=== PATIENT | male | born 1960 | race African-American/Black ===

== ENCOUNTER 2016-11-02 22:19 | Emergency (ER) | payer MEDICARE, OTHER ==
[~2016-11-02] VITALS: Ht 180.3 cm; Wt 108.9 kg
[2016-11-02 22:30] VITALS: BP 240/161
== END 2016-11-02 23:06 | disposition left against medical advice (07) ==
LOC: EDBD 22:19 → ER 22:26
DX: I10 Essential (primary) hypertension (principal); R40.1 Stupor; Z53.21 Procedure and treatment not carried out due to patient leaving prior to being seen by health care provider

== ENCOUNTER 2021-04-17 13:53 | Inpatient (IN) | payer OTHER ==
[~2021-04-17] VITALS: Ht 180.3 cm; Wt 122.3 kg
[2021-04-17] MEDS ORDERED: SODIUM CHLORIDE 0.9% 500 ML IV ONE (14:15)
[2021-04-17] MEDS ORDERED: KETOROLAC TROMETH 30 MG/ML 1ML VIAL IV ONE (14:15)
[2021-04-17 14:43] LABS: Basophils # (auto) 0.1 10 ^3/uL (0-0.2); Basophils % (auto) 0.7 % (0.0-2.0); Eosinophils # (auto) 0 10 ^3/uL (0-0.8); Eosinophils % (auto) 0.2 % (0.0-7.0); Hematocrit 38.8 % (41.0-53.0); Lymphocytes # (auto) 1.3 10 ^3/uL (0.4-5.4); Lymphocytes % (auto) 10.4 % (10.0-50.0); Mean Corpuscular Hemoglobin 31.2 pg (28.0-32.0); Mean Corpuscular Hgb Conc. 33.6 g/dL (32.0-36.0); Mean Corpuscular Volume 92.8 fL (80.0-100.0); Monocytes # (auto) 1.7 10 ^3/uL (0-1.3); Monocytes % (auto) 13.2 % (0.0-12.0); Neutrophils # (auto) 9.5 10 ^3/uL (1.6-8.6); Neutrophils % (auto) 75.5 % (37.0-80.0); Nucleated Red Blood Cells % 0.2 %; Red Blood Cells 4.18 10^6/uL (4.5-5.90); Red Cell Distribution Width 13.4 % (11.8-14.3); White Blood Cell 12.6 10^3/uL (4.4-10.8)
[2021-04-17 15:05] LABS: Albumin 3.2 g/dL (3.4-5.0); BUN/Creatinine Ratio 13.8; Calcium 8.5 mg/dL (8.5-10.1); Potassium 3.3 mmol/L (3.5-5.1)
[2021-04-17] MEDS ORDERED: CLINDAMYCIN 600MG IV 50 ML IV ONE (17:30)
[2021-04-17] MEDS ORDERED: POTASSIUM EFFERVESENT TAB 25 MEQ PO ONE (17:30)
[2021-04-17] MEDS ORDERED: levoFLOXacin 500MG 100 ML IV ONE (17:30)
[2021-04-17] MEDS ORDERED: ONDANSETRON HCL 4 MG/2 ML VIAL IV PRN (20:15)
[2021-04-17] MEDS ORDERED: ACETAMINOPHEN 500 MG TAB PO PRN (20:15)
[2021-04-17] MEDS ORDERED: LABETALOL HCL 5 MG/ML ML 20ML VIAL IV PRN (20:15)
[2021-04-17] MEDS ORDERED: NITROGLYCERIN 0.4 MG SL TAB SL PRN (20:15)
[2021-04-17] MEDS ORDERED: DEXTROSE (50%) 50ML SYRG IV PRN (20:15)
[2021-04-17] MEDS ORDERED: LACTULOSE 20Gm/30ML SOLN PO PRN (20:15)
[2021-04-17] MEDS ORDERED: MORPHINE SULF INJ 2 MG/ML SYRINGE 1ML IV PRN (20:15)
[2021-04-17 20:28] LABS: Urine Bacteria NONE SEEN /hpf (None Seen); Urine Blood Negative /uL (Negative); Urine Specific Gravity 1.017 (1.001-1.035); Urine WBC 1 /hpf (0 - 3)
[2021-04-17] MEDS: SODIUM CHLORIDE 0.9% 1,000 ML IV SCH (20:33)
[2021-04-17 20:44] LABS: Amphetamine Screen, Urine NEGATIVE (NEGATIVE); Barbiturate Scree,Urine NEGATIVE (NEGATIVE); Benzodiazephine Screen, Urine NEGATIVE (NEGATIVE); Cannabinoid Screen, Urine NEGATIVE (NEGATIVE); Cocaine Screen, Urine NEGATIVE (NEGATIVE); Opiate Scree,Urine NEGATIVE (NEGATIVE); Phencyclidine Screen, Urine POSITIVE (NEGATIVE)
[2021-04-17] MEDS: traMADol HCL 50 MG TAB PO PRN (21:09)
[2021-04-17 21:18] LABS: CRP High Sensitivity 10.8 mg/dL (< 0.3)
[2021-04-17 22:00] VITALS: BP 140/76
[2021-04-17] MEDS: FAMOTIDINE 20 MG TAB PO SCH (22:12)
[2021-04-17] MEDS: ACCU-CHEK COMFORT CURVE STRIP VI SCH (22:13)
[2021-04-17] MEDS: InsuLIN REG 1unit/0.01ml Soln (100units/ml) SC SCH (22:31)
[2021-04-18] MEDS: CLINDAMYCIN 600MG IV 50 ML IV SCH ×2 (02:15→09:22)
[2021-04-18 05:00] VITALS: BP 115/72
[2021-04-18] MEDS: InsuLIN REG 1unit/0.01ml Soln (100units/ml) SC SCH ×4 (06:11→21:12)
[2021-04-18] MEDS: ACCU-CHEK COMFORT CURVE STRIP VI SCH ×4 (06:11→21:08)
[2021-04-18 06:16] LABS: Basophils # (auto) 0 10 ^3/uL (0-0.2); Basophils % (auto) 0.4 % (0.0-2.0); Eosinophils # (auto) 0.1 10 ^3/uL (0-0.8); Hematocrit 34.6 % (41.0-53.0); Hemoglobin 11.8 g/dL (13.5-17.5); Lymphocytes # (auto) 2.1 10 ^3/uL (0.4-5.4); Lymphocytes % (auto) 18.1 % (10.0-50.0); Mean Corpuscular Hemoglobin 31.8 pg (28.0-32.0); Mean Corpuscular Hgb Conc. 34.1 g/dL (32.0-36.0); Mean Corpuscular Volume 93.1 fL (80.0-100.0); Monocytes # (auto) 1.7 10 ^3/uL (0-1.3); Neutrophils # (auto) 7.6 10 ^3/uL (1.6-8.6); Neutrophils % (auto) 65.5 % (37.0-80.0); Red Blood Cells 3.72 10^6/uL (4.5-5.90); Red Cell Distribution Width 13.3 % (11.8-14.3); White Blood Cell 11.7 10^3/uL (4.4-10.8)
[2021-04-18 06:31] LABS: Potassium 3.2 mmol/L (3.5-5.1)
[2021-04-18] MEDS: SODIUM CHLORIDE 0.9% 1,000 ML IV SCH ×2 (06:31→16:15)
[2021-04-18 06:43] LABS: Albumin 2.7 g/dL (3.4-5.0); BUN/Creatinine Ratio 18.1; Bilirubin, Total 0.6 mg/dL (0.2-1.0); Calcium 8.2 mg/dL (8.5-10.1); Total Protein 6.9 g/dL (6.4-8.2)
[2021-04-18] MEDS: traMADol HCL 50 MG TAB PO PRN (08:44)
[2021-04-18 09:00] VITALS: BP 111/80
[2021-04-18] MEDS ORDERED: LORazepam 2MG/ML-1ML VIAL IV PRN (09:00)
[2021-04-18] MEDS: FAMOTIDINE 20 MG TAB PO SCH ×2 (09:23→21:08)
[2021-04-18] MEDS: ASPirin 81 mg TAB PO SCH (09:23)
[2021-04-18] MEDS: ENOXAPARIN SOD 40 MG/0.4 ML SYRINGE SC SCH (09:23)
[2021-04-18] MEDS ORDERED: POTASSIUM CHL 20 Meq TABLET PO ONE (10:30)
[2021-04-18] MEDS: PIPERACILLIN-TAZOB 3.375GM 100 ML IV SCH ×3 (10:40→21:43)
[2021-04-18] MEDS ORDERED: levoFLOXacin 500MG 100 ML IV SCH (11:00)
[2021-04-18 11:01] LABS: Folate (Folic Acid) 5.77 ng/mL (5.38-24)
[2021-04-18] MEDS ORDERED: FOLIC ACID 1 MG, MULTIPLE VITAMIN 10 ML, MAGNESIUM SULF SDV 50% 8 MEQ, THIAMINE INJ 100... INJ SCH ×5 (12:00)
[2021-04-18 13:00] VITALS: BP 118/74
[2021-04-18 17:00] VITALS: BP 132/81
[2021-04-18 22:00] VITALS: BP 133/90
[2021-04-19] MEDS: PIPERACILLIN-TAZOB 3.375GM 100 ML IV SCH (04:06)
[2021-04-19] MEDS: SODIUM CHLORIDE 0.9% 1,000 ML IV SCH (04:06)
[2021-04-19 05:00] VITALS: BP 133/81
[2021-04-19 06:27] LABS: Basophils # (auto) 0 10 ^3/uL (0-0.2); Basophils % (auto) 0.5 % (0.0-2.0); Eosinophils # (auto) 0.1 10 ^3/uL (0-0.8); Eosinophils % (auto) 1.5 % (0.0-7.0); Hematocrit 33.8 % (41.0-53.0); Hemoglobin 11.6 g/dL (13.5-17.5); Lymphocytes # (auto) 2.1 10 ^3/uL (0.4-5.4); Mean Corpuscular Hgb Conc. 34.2 g/dL (32.0-36.0); Mean Corpuscular Volume 93.5 fL (80.0-100.0); Monocytes # (auto) 1.2 10 ^3/uL (0-1.3); Monocytes % (auto) 11.9 % (0.0-12.0); Neutrophils # (auto) 6.3 10 ^3/uL (1.6-8.6); Neutrophils % (auto) 64.1 % (37.0-80.0); Red Blood Cells 3.62 10^6/uL (4.5-5.90); Red Cell Distribution Width 13.2 % (11.8-14.3); White Blood Cell 9.8 10^3/uL (4.4-10.8)
[2021-04-19] MEDS: InsuLIN REG 1unit/0.01ml Soln (100units/ml) SC SCH (06:36)
[2021-04-19] MEDS: ACCU-CHEK COMFORT CURVE STRIP VI SCH (06:36)
[2021-04-19 06:53] LABS: BUN/Creatinine Ratio 16.5; Calcium 8.3 mg/dL (8.5-10.1); Potassium 3.9 mmol/L (3.5-5.1)
[2021-04-19] MEDS: traMADol HCL 50 MG TAB PO PRN (09:18)
[2021-04-19] MEDS: ENOXAPARIN SOD 40 MG/0.4 ML SYRINGE SC SCH (09:33)
[2021-04-19] MEDS: FAMOTIDINE 20 MG TAB PO SCH (09:33)
[2021-04-19] MEDS: ASPirin 81 mg TAB PO SCH (09:33)
== END 2021-04-19 11:00 | DRG 602 ==
LOC: ER 13:53 → EDBD 13:53 → TELE 20:06 → TELE-WESTW 21:32
PROVIDERS: ADMIT Internal Medicine; ATTEND Internal Medicine
DX: L03.113 Cellulitis of right upper limb (principal); N18.6 End stage renal disease; L03.116 Cellulitis of left lower limb; I12.0 Hypertensive chronic kidney disease with stage 5 chronic kidney disease or end stage renal disease; L03.115 Cellulitis of right lower limb; E87.6 Hypokalemia; Z20.822 Contact with and (suspected) exposure to COVID-19; E11.22 Type 2 diabetes mellitus with diabetic chronic kidney disease; F17.210 Nicotine dependence, cigarettes, uncomplicated; Z82.49 Family history of ischemic heart disease and other diseases of the circulatory system; E11.65 Type 2 diabetes mellitus with hyperglycemia; D72.829 Elevated white blood cell count, unspecified; R79.89 Other specified abnormal findings of blood chemistry; F10.10 Alcohol abuse, uncomplicated; F16.10 Hallucinogen abuse, uncomplicated; S60.551A Superficial foreign body of right hand, initial encounter; X58.XXXA Exposure to other specified factors, initial encounter
CPT/HCPCS: 36415; 70450; 70551; 71045; 73120; 73200; 73562; 80048; 80053; 80307; 81001; 82140; 82550; 82607; 82746; 82962; 83036; 84443; 85025; 85049; 85652; 86141; 87040; 87086; 87426; 93005; 93971; 96361; 96365; 96366; 96368; 97163; G0378; J1815; J1885; J1956; J2543; J3490